=== PATIENT | male | born 1930 | race Caucasian/White ===

== ENCOUNTER → 2016-07-28 | Outpatient (CLI) | payer MEDICARE, OTHER ==
[~2016-07-28] MED LIST: ALPARAZOLAM0.5 MG PO; ARICEPT10 MG PO; RISPERDAL 0.20.25 MG PO; VITAMIN B11000 MCG/M IM; VITAMIN C PUR1000 MG PO
== END ==
LOC: LAB 09:54
DX: D64.89 Other specified anemias (principal); I44.1 Atrioventricular block, second degree; Z12.5 Encounter for screening for malignant neoplasm of prostate; E78.2 Mixed hyperlipidemia; E53.8 Deficiency of other specified B group vitamins

== ENCOUNTER → 2016-11-18 | Outpatient (CLI) | payer MEDICARE, OTHER ==
[2015-08-13 14:15] VITALS: BP 167/51
== END ==
LOC: LAB 08:55
DX: I70.213 Atherosclerosis of native arteries of extremities with intermittent claudication, bilateral legs (principal)

== ENCOUNTER → 2016-11-24 | Outpatient (CLI) | payer MEDICARE, OTHER ==
[2015-08-13 14:15] VITALS: BP 167/51
== END ==
LOC: LAB 07:59
DX: I70.213 Atherosclerosis of native arteries of extremities with intermittent claudication, bilateral legs (principal)

== ENCOUNTER → 2016-11-30 | Outpatient (CLI) | payer MEDICARE, OTHER ==
[2015-08-13 14:15] VITALS: BP 167/51
== END ==
LOC: LAB 08:06
DX: I70.213 Atherosclerosis of native arteries of extremities with intermittent claudication, bilateral legs (principal)

== ENCOUNTER → 2017-06-25 | Outpatient (CLI) | payer MEDICARE, OTHER ==
[2015-08-13 14:15] VITALS: BP 167/51
[2017-06-25 17:26] LABS: URINE APPEARANCE CLEAR; URINE BILIRUBIN NEGATIVE (NEGATIVE); URINE BLOOD NEGATIVE (NEGATIVE); URINE COLOR YELLOW; URINE GLUCOSE NEGATIVE (NEGATIVE); URINE KETONE NEGATIVE (NEGATIVE); URINE LEUKOCYTE ESTERASE NEGATIVE (NEGATIVE); URINE NITRATE NEGATIVE (NEGATIVE); URINE PROTEIN(semi-quant) NEGATIVE (NEGATIVE); URINE UROBILINOGEN NORMAL (NORMAL)
[2017-06-25 17:37] LABS: ALBUMIN 4.1 g/dL (3.5-5.0); BUN/CREATININE RATIO 19.9 (6.0-26.0); CALCIUM 9.4 mg/dL (8.4-10.2); POTASSIUM 4.6 mmol/L (3.6-5.0); TOTAL BILIRUBIN 0.5 mg/dL (0.2-1.3); TOTAL PROTEIN 7.2 g/dL (6.3-8.2)
[2017-06-25 18:09] LABS: HEMATOCRIT 39.3 % (42.0-52.0); MEAN CELL VOLUME 92 fl (78-100); MEAN CORPUSCULAR HEMOGLOBIN 30 pg (27-31); MEAN CORPUSCULAR HGB CONC 33 g/dL (33-37); MEAN PLATELET VOLUME 10.4 fl (7.4-10.4); PLATELET COUNT 200 K/mm3 (130-400); RED BLOOD COUNT 4.28 M/mm3 (4.20-5.60); RED CELL DISTRIBUTION WIDTH 12.3 % (11.5-14.5); WHITE BLOOD COUNT 5.3 K/mm3 (4.8-10.8)
[2017-06-25 19:26] LABS: ERYTHROCYTE SEDIMENTATION RATE 12 mm/hr (0-20); LYMPHOCYTE 29 % (20-51); MONOCYTE 9 % (3-10); NEUTROPHILS 60 % (42-75)
== END ==
LOC: LAB 15:16
PROVIDERS: Internal Medicine
DX: G93.40 Encephalopathy, unspecified (principal); E78.2 Mixed hyperlipidemia; D64.9 Anemia, unspecified; R41.3 Other amnesia; E53.8 Deficiency of other specified B group vitamins; R73.09 Other abnormal glucose; Z12.5 Encounter for screening for malignant neoplasm of prostate; F03.90 Unspecified dementia, unspecified severity, without behavioral disturbance, psychotic disturbance, mood disturbance, and anxiety; Z12.11 Encounter for screening for malignant neoplasm of colon

== ENCOUNTER → 2018-08-08 | Outpatient (CLI) | payer MEDICARE, OTHER ==
[2015-08-13 14:15] VITALS: BP 167/51
[2018-08-08 15:49] LABS: EOS # 0.2 (0.04-0.40); EOS % 3.3 % (0.0-4.0); HEMATOCRIT 42.4 % (42.0-52.0); HEMOGLOBIN 13.6 g/dL (13.5-18.0); LYMPH# 1.4 (1.50-4.00); MEAN CELL VOLUME 91 fl (78-100); MEAN CORPUSCULAR HEMOGLOBIN 29 pg (27-31); MEAN CORPUSCULAR HGB CONC 32 g/dL (33-37); MONO # 0.6 (0.20-0.80); PLATELET COUNT 188 K/mm3 (130-400); RED BLOOD COUNT 4.64 M/mm3 (4.20-5.60); RED CELL DISTRIBUTION WIDTH 12.8 % (11.5-14.5); WHITE BLOOD COUNT 5.2 K/mm3 (4.8-10.8)
[2018-08-08 15:51] LABS: ALBUMIN 4.4 g/dL (3.5-5.0); CALCIUM 9.5 mg/dL (8.4-10.2); POTASSIUM 4.1 mmol/L (3.6-5.0); TOTAL BILIRUBIN 0.4 mg/dL (0.2-1.3); TOTAL PROTEIN 7.6 g/dL (6.3-8.2)
[2018-08-08 17:04] LABS: URINE APPEARANCE CLEAR; URINE BILIRUBIN NEGATIVE (NEGATIVE); URINE BLOOD TRACE (NEGATIVE); URINE COLOR YELLOW; URINE GLUCOSE NEGATIVE (NEGATIVE); URINE KETONE NEGATIVE (NEGATIVE); URINE NITRATE NEGATIVE (NEGATIVE); URINE PROTEIN(semi-quant) TRACE mg/dL (NEGATIVE); URINE UROBILINOGEN NORMAL (NORMAL)
[2018-08-08 17:05] LABS: URINE LEUKOCYTE ESTERASE NEGATIVE (NEGATIVE)
[2018-08-08 17:06] LABS: ERYTHROCYTE SEDIMENTATION RATE 10 mm/hr (0-20)
== END ==
LOC: LAB 14:47
PROVIDERS: Internal Medicine
DX: R06.02 Shortness of breath (principal); I44.30 Unspecified atrioventricular block; F03.90 Unspecified dementia, unspecified severity, without behavioral disturbance, psychotic disturbance, mood disturbance, and anxiety; G93.40 Encephalopathy, unspecified; E03.4 Atrophy of thyroid (acquired); Z95.0 Presence of cardiac pacemaker

== ENCOUNTER → 2020-01-23 | Outpatient (CLI) | payer MEDICARE, OTHER ==
[2019-05-22 13:06] VITALS: BP 163/85
[~2020-01-23] MED LIST changes: +ALPRAZOLAM0.5 MG PO; +AMLODIPINE BESYL5 MG PO; +ASPIRIN E.C. 8181 MG; +LEXAPRO5 MG PO; +RISPERDAL 1M1 MG/TAB PO
== END ==
LOC: RAD 11:00
DX: G45.9 Transient cerebral ischemic attack, unspecified (principal)

== ENCOUNTER 2020-02-14 15:34 | Emergency (ER) | payer MEDICARE, OTHER ==
[2020-02-06 09:26] VITALS: BP 126/65
[~2020-02-14] VITALS: Ht 182.9 cm; Wt 76.3 kg
[~2020-02-14 15:34] MED LIST changes: -DAILY VALUE1 EACH PO; -DULCOLAX S10 MG/SUPP RC; -FLEET ENEM1 BOT/133 RC; -HYDROCODON-ACET15 ML PO; -NATURAL VITAM1000 MG PO; -RISPERIDONE0.25 M2 PO; -VITAMIN B122500 MC1 PO; -VITAMIN D350 MC1 PO; -XANAX0.25 M1 PO
[2020-02-15] MEDS ORDERED: DULCOLAX S10 MG/SUPP RC (16:13)
[2020-02-15] MEDS ORDERED: FLEET ENEM1 BOT/133 RC (16:13)
[2020-02-15] MEDS ORDERED: HYDROCODON-ACET15 ML PO (16:15)
[2020-02-15] MEDS ORDERED: LEXAPRO5 MG PO (16:16)
[2020-02-15] MEDS ORDERED: DAILY VALUE1 EACH PO (16:17)
[2020-02-15] MEDS ORDERED: RISPERIDONE0.25 M2 PO (16:18)
[2020-02-15] MEDS ORDERED: NATURAL VITAM1000 MG PO (16:19)
[2020-02-15] MEDS ORDERED: VITAMIN B122500 MC1 PO (16:19)
[2020-02-15] MEDS ORDERED: VITAMIN D350 MC1 PO (16:20)
[2020-02-15] MEDS ORDERED: XANAX0.25 M1 PO (16:21)
== END 2020-02-14 15:41 | disposition home or self-care (01) ==
LOC: ED 15:34
DX: Z72.9 Problem related to lifestyle, unspecified (principal)

== ENCOUNTER → 2020-02-14 | Outpatient (CLI) | payer MEDICARE, OTHER, MEDICAID ==
[2020-02-06 09:26] VITALS: BP 126/65
[~2020-02-14] MED LIST changes: -ASPIRIN E.C. 8181 MG; +DAILY VALUE1 EACH PO; +DONEPEZIL HCL10 MG PO; +DULCOLAX S10 MG/SUPP RC; +ELIDEL30 GM TP; +FLEET ENEM1 BOT/133 RC; +GOOD NEIGH1200 MG/15 PO; +HYDROCODON-ACET15 ML PO; +NATURAL VITAM1000 MG PO; +RISPERIDONE0.25 M2 PO; +SELSUN BLUE207 ML TP; +TOPCARE ASPIRI325 MG PO; +TYLENOL 325MG325 MG PO; +VITAMIN B122500 MC1 PO; +VITAMIN D350 MC1 PO; +XANAX0.25 M1 PO
== END ==
LOC: LAB 15:46
DX: N18.2 Chronic kidney disease, stage 2 (mild) (principal)

== ENCOUNTER → 2020-02-15 | Outpatient (CLI) | payer MEDICARE, OTHER, MEDICAID ==
[2020-02-15] VITALS (14 sets, daily range): BP systolic 124–146; BP diastolic 60–95
[~2020-02-15] VITALS: Ht 182.9 cm; Wt 79.1 kg
[~2020-02-15] MED LIST changes: +DAILY VALUE1 EACH PO; +DULCOLAX S10 MG/SUPP RC; +FLEET ENEM1 BOT/133 RC; +HYDROCODON-ACET15 ML PO; +NATURAL VITAM1000 MG PO; +RISPERIDONE0.25 M2 PO; +VITAMIN B122500 MC1 PO; +VITAMIN D350 MC1 PO; +XANAX0.25 M1 PO
--- NOTE | 2020-02-15 15:15 | NUR ---
BLOOD TRANSFUSION EDUCATION PROVIDED TO AND PATIENT. SIGNS CONSENT. PATIENT RECENTLY HAD A RT HIP REPLACEMENT AND LIVES AT [facility]. 2 STAFF ASSIST TO TRANSFER FROM W/C TO BED. PATIENT DROWSY. RESPONSIVE TO QUESTIONS AND FOLLOWS INSTRUCTION.
--- NOTE | 2020-02-15 16:28 | NUR ---
BLOOD TRANSFUSION STARTED AT 1555. AT THIS TIME, PATIENT DENIES ITCHING, PAIN, AND SHORTNESS OF BREATH. CONTINUES TO REST INTERMITTENTLY IN BED. SITTING IN CHAIR NEXT TO BED WITH TV ON.
--- NOTE | 2020-02-15 17:09 | NUR ---
MEAL TRAY DELIVERED TO PATIENT. WILL ASSIST WITH FEEDING.
--- NOTE | 2020-02-15 18:24 | NUR ---
INCONTINENT CARE PROVIDED.
--- NOTE | 2020-02-15 18:57 | NUR ---
REPORT PROVIDED TO ROSAURA NICOLE.
--- NOTE | 2020-02-15 19:04 | NUR ---
Shift change assessment complete. RR regular, unlabored, clear. HR regular. Lt leg has some pitting edema. According to it has been looking like that since the hip surgery. Pt is resting. Blood infusing through a 20 guage in Rt forearm. Site is clean dry and intact without phlebitis or infiltrate.
--- NOTE | 2020-02-15 20:16 | NUR ---
2013 Total two person transfer from bed to wheel chair. Alert to self and . at bed side. Tolerated transfer without difficulty. Foot protectors applied to pt's feet. 2019 Cat STRONG from [facility] here to take pt home.
== END ==
LOC: AMSURD 14:56
DX: D64.9 Anemia, unspecified (principal)
CPT/HCPCS: J7050; P9016

== ENCOUNTER 2020-05-04 16:12 | Emergency (ER) | payer MEDICARE, OTHER, MEDICAID ==
[~2020-05-04] VITALS: Wt 79.1 kg
[~2020-05-04 16:12] MED LIST changes: -NATURAL VITAM1000 MG PO
[2020-05-04 17:50] LABS: EOS # 0.2 (0.04-0.40); EOS % 1.7 % (0.0-4.0); HEMATOCRIT 39.3 % (42.0-52.0); HEMOGLOBIN 12.4 g/dL (13.5-18.0); LYMPH# 2.2 (1.50-4.00); MEAN CELL VOLUME 92 fl (78-100); MEAN CORPUSCULAR HEMOGLOBIN 29 pg (27-31); MEAN CORPUSCULAR HGB CONC 32 g/dL (33-37); MEAN PLATELET VOLUME 9.7 fl (7.4-10.4); MONO # 0.5 (0.20-0.80); PLATELET COUNT 246 K/mm3 (130-400); RED BLOOD COUNT 4.29 M/mm3 (4.20-5.60); RED CELL DISTRIBUTION WIDTH 14.8 % (11.5-14.5); WHITE BLOOD COUNT 12.6 K/mm3 (4.8-10.8)
[2020-05-04 17:51] LABS: NEU # 9.7 (1.40-6.50)
[2020-05-04 17:55] LABS: ALBUMIN 3.5 g/dL (3.4-4.8); POTASSIUM 3.9 mmol/L (3.5-5.1); SODIUM 142 mmol/L (136-145)
[2020-05-04 17:56] LABS: CALCIUM 8.6 mg/dL (8.3-10.5)
[2020-05-04 17:57] LABS: URINE APPEARANCE CLEAR; URINE BILIRUBIN NEGATIVE (NEGATIVE); URINE BLOOD TRACE (NEGATIVE); URINE COLOR YELLOW; URINE GLUCOSE NEGATIVE (NEGATIVE); URINE KETONE NEGATIVE (NEGATIVE); URINE LEUKOCYTE ESTERASE NEGATIVE (NEGATIVE); URINE MUCUS PRESENT (NOT PRESENT); URINE NITRATE NEGATIVE (NEGATIVE); URINE PROTEIN(semi-quant) TRACE mg/dL (NEGATIVE); URINE UROBILINOGEN NORMAL (NORMAL)
[2020-05-04 17:57] LABS: GLUCOSE 133 mg/dL (75-110); TOTAL PROTEIN 6.8 g/dL (6.2-8.1)
[2020-05-04 17:58] LABS: CARBON DIOXIDE 18 mmol/L (23-31)
[2020-05-04 17:59] LABS: TOTAL BILIRUBIN 0.3 mg/dL (0.2-1.2)
[2020-05-04 18:02] LABS: AST-SGOT 26 U/L (5-34)
[2020-05-04 18:04] LABS: ALT/SGPT 25 U/L (0-55)
[2020-05-04 18:09] LABS: TROPONIN-I < 0.03 ng/mL (<0.030)
[2020-05-04 18:44] VITALS: BP 116/58
[2020-05-04] MEDS ORDERED: ARICEPT10 M1 PO (19:57)
[2020-05-04] MEDS ORDERED: ELIDEL30 GM TP (19:58)
[2020-05-04] MEDS ORDERED: TYLENOL 325MG325 MG PO (20:00)
[2020-05-04] MEDS ORDERED: VITAMIN D350 MC1 PO (20:02)
[2020-05-05] MEDS ORDERED: VITAMIN B122500 MC1 PO (02:03)
== END 2020-05-04 21:02 | disposition other institution (70) ==
LOC: ED 16:12
PROVIDERS: Family Medicine
DX: T17.900A Unspecified foreign body in respiratory tract, part unspecified causing asphyxiation, initial encounter (principal); R06.00 Dyspnea, unspecified; F03.90 Unspecified dementia, unspecified severity, without behavioral disturbance, psychotic disturbance, mood disturbance, and anxiety; R13.10 Dysphagia, unspecified; R11.10 Vomiting, unspecified; Z20.828 Contact with and (suspected) exposure to other viral communicable diseases; Z23 Encounter for immunization; Z95.0 Presence of cardiac pacemaker; Z79.82 Long term (current) use of aspirin
CPT/HCPCS: J1940; J2270

== ENCOUNTER 2020-05-04 20:22 | Inpatient (IN) | payer MEDICARE, OTHER, MEDICAID ==
[~2020-05-04] VITALS: Ht 177.8 cm; Wt 79.3 kg
[~2020-05-04 20:22] MED LIST changes: +ARICEPT10 M1 PO
[2020-05-05] MEDS ORDERED: VITAMIN B122500 MC1 PO (02:03)
[2020-05-05 02:21] VITALS: BP 136/75
[2020-05-05 05:49] VITALS: BP 111/59
[2020-05-05 09:22] LABS: HEMOGLOBIN 11.3 g/dL (13.5-18.0); MEAN CELL VOLUME 92 fl (78-100); MEAN CORPUSCULAR HEMOGLOBIN 30 pg (27-31); MEAN CORPUSCULAR HGB CONC 32 g/dL (33-37); MEAN PLATELET VOLUME 9.7 fl (7.4-10.4); PLATELET COUNT 201 K/mm3 (130-400); RED BLOOD COUNT 3.79 M/mm3 (4.20-5.60); RED CELL DISTRIBUTION WIDTH 14.7 % (11.5-14.5); WHITE BLOOD COUNT 13.6 K/mm3 (4.8-10.8)
[2020-05-05 09:35] LABS: POTASSIUM 4.2 mmol/L (3.5-5.1)
[2020-05-05 09:36] LABS: CALCIUM 8.8 mg/dL (8.3-10.5)
[2020-05-05 09:53] LABS: BAND 31 % (0-10); LYMPHOCYTE 9 % (20-51); METAMYELOCYTE 3 % (0-0); MONOCYTE 2 % (3-10); NEUTROPHILS 55 % (42-75); NUCLEATED RED BLOOD CELL 1 (0-6)
[2020-05-05 10:28] VITALS: BP 106/48
[2020-05-05 15:00] VITALS: BP 105/52
[2020-05-05 18:14] VITALS: BP 112/56
[2020-05-05 22:10] VITALS: BP 84/46
[2020-05-06 02:26] VITALS: BP 109/48
[2020-05-06 06:25] VITALS: BP 124/61
[2020-05-06 09:32] VITALS: BP 110/66
[2020-05-06 13:40] VITALS: BP 109/76
[2020-05-06 17:19] VITALS: BP 120/57
[2020-05-06 21:28] VITALS: BP 154/68
[2020-05-07 02:15] VITALS: BP 130/73
[2020-05-07 06:00] VITALS: BP 145/69
[2020-05-07 06:01] LABS: HEMATOCRIT 30.1 % (42.0-52.0); HEMOGLOBIN 9.6 g/dL (13.5-18.0); MEAN CELL VOLUME 91 fl (78-100); MEAN CORPUSCULAR HEMOGLOBIN 29 pg (27-31); MEAN CORPUSCULAR HGB CONC 32 g/dL (33-37); MEAN PLATELET VOLUME 10.3 fl (7.4-10.4); PLATELET COUNT 194 K/mm3 (130-400); RED BLOOD COUNT 3.31 M/mm3 (4.20-5.60); WHITE BLOOD COUNT 11.9 K/mm3 (4.8-10.8)
[2020-05-07 06:15] LABS: CALCIUM 8.5 mg/dL (8.3-10.5)
[2020-05-07 06:34] LABS: BAND 4 % (0-10); LYMPHOCYTE 12 % (20-51); MONOCYTE 3 % (3-10); NEUTROPHILS 81 % (42-75)
[2020-05-07 06:35] LABS: TOXIC GRANULATION PRESENT
[2020-05-07 10:06] VITALS: BP 119/63
[2020-05-07 13:48] VITALS: BP 117/66
[2020-05-07 17:29] VITALS: BP 130/77
[2020-05-07 22:00] VITALS: BP 123/63
[2020-05-08 01:38] VITALS: BP 138/72
[2020-05-08 06:01] VITALS: BP 136/64
[2020-05-08 10:40] VITALS: BP 116/68
[2020-05-08 14:03] VITALS: BP 126/74
[2020-05-08 17:22] VITALS: BP 136/74
[2020-05-08 21:16] VITALS: BP 137/65
[2020-05-09 02:14] VITALS: BP 153/73
[2020-05-09 05:33] VITALS: BP 167/77
[2020-05-09 06:16] LABS: HEMATOCRIT 32.6 % (42.0-52.0); HEMOGLOBIN 10.4 g/dL (13.5-18.0); MEAN CELL VOLUME 92 fl (78-100); MEAN CORPUSCULAR HEMOGLOBIN 29 pg (27-31); MEAN CORPUSCULAR HGB CONC 32 g/dL (33-37); MEAN PLATELET VOLUME 9.8 fl (7.4-10.4); PLATELET COUNT 223 K/mm3 (130-400); RED BLOOD COUNT 3.55 M/mm3 (4.20-5.60); RED CELL DISTRIBUTION WIDTH 14.9 % (11.5-14.5); WHITE BLOOD COUNT 10.3 K/mm3 (4.8-10.8)
[2020-05-09 06:31] LABS: CALCIUM 8.2 mg/dL (8.3-10.5)
[2020-05-09 06:39] LABS: BAND 1 % (0-10); LYMPHOCYTE 10 % (20-51); MONOCYTE 5 % (3-10); NEUTROPHILS 84 % (42-75); TARGET CELLS 1+
[2020-05-09 09:39] VITALS: BP 125/68
[2020-05-09 13:44] VITALS: BP 137/74
[2020-05-09 17:06] VITALS: BP 161/72
[2020-05-09 21:33] VITALS: BP 161/75
[2020-05-10 02:00] VITALS: BP 156/79
[2020-05-10 05:59] VITALS: BP 155/70
[2020-05-10 09:04] LABS: EOS % 0.1 % (0.0-4.0); HEMATOCRIT 35.5 % (42.0-52.0); HEMOGLOBIN 11.3 g/dL (13.5-18.0); LYMPH# 1.6 (1.50-4.00); MEAN CELL VOLUME 91 fl (78-100); MEAN CORPUSCULAR HEMOGLOBIN 29 pg (27-31); MEAN CORPUSCULAR HGB CONC 32 g/dL (33-37); MEAN PLATELET VOLUME 9.9 fl (7.4-10.4); NEU # 8.8 (1.40-6.50); PLATELET COUNT 254 K/mm3 (130-400); RED BLOOD COUNT 3.91 M/mm3 (4.20-5.60); RED CELL DISTRIBUTION WIDTH 14.6 % (11.5-14.5); WHITE BLOOD COUNT 12.1 K/mm3 (4.8-10.8)
[2020-05-10 09:08] LABS: POTASSIUM 4.4 mmol/L (3.5-5.1)
[2020-05-10 09:09] LABS: CALCIUM 8.2 mg/dL (8.3-10.5)
[2020-05-10 09:54] VITALS: BP 134/71
[2020-05-10 14:03] VITALS: BP 116/56
[2020-05-10 15:18] LABS: URINE APPEARANCE CLEAR; URINE BILIRUBIN NEGATIVE (NEGATIVE); URINE BLOOD TRACE (NEGATIVE); URINE COLOR YELLOW; URINE GLUCOSE NEGATIVE (NEGATIVE); URINE KETONE NEGATIVE (NEGATIVE); URINE LEUKOCYTE ESTERASE NEGATIVE (NEGATIVE); URINE MUCUS PRESENT (NOT PRESENT); URINE NITRATE NEGATIVE (NEGATIVE); URINE PROTEIN(semi-quant) 1+ mg/dL (NEGATIVE); URINE UROBILINOGEN NORMAL (NORMAL)
[2020-05-10 18:46] VITALS: BP 130/78
[2020-05-10 22:20] VITALS: BP 121/74
[2020-05-11 02:00] VITALS: BP 158/79
[2020-05-11 05:52] VITALS: BP 143/85
[2020-05-11 10:00] VITALS: BP 102/54
[2020-05-11 14:03] VITALS: BP 100/46
[2020-05-11 18:40] VITALS: BP 120/64
[2020-05-11 21:38] VITALS: BP 121/56
[2020-05-12 01:14] VITALS: BP 161/84
[2020-05-12 05:55] VITALS: BP 130/84
[2020-05-12 10:12] VITALS: BP 119/68
[2020-05-12 14:20] VITALS: BP 113/69
[2020-05-12 18:00] VITALS: BP 108/71
[2020-05-12 21:38] VITALS: BP 132/70
[2020-05-13 01:35] VITALS: BP 137/79
[2020-05-13 06:02] VITALS: BP 146/68
[2020-05-13 07:26] LABS: EOS # 0.2 (0.04-0.40); EOS % 2.8 % (0.0-4.0); HEMATOCRIT 35.1 % (42.0-52.0); LYMPH# 1.5 (1.50-4.00); MEAN CELL VOLUME 92 fl (78-100); MEAN CORPUSCULAR HEMOGLOBIN 29 pg (27-31); MEAN CORPUSCULAR HGB CONC 31 g/dL (33-37); MEAN PLATELET VOLUME 9.8 fl (7.4-10.4); MONO # 0.8 (0.20-0.80); NEU # 4.9 (1.40-6.50); PLATELET COUNT 239 K/mm3 (130-400); RED BLOOD COUNT 3.82 M/mm3 (4.20-5.60); RED CELL DISTRIBUTION WIDTH 15.2 % (11.5-14.5)
[2020-05-13 07:34] LABS: POTASSIUM 3.8 mmol/L (3.5-5.1)
[2020-05-13 10:01] VITALS: BP 101/65
[2020-05-13] MEDS ORDERED: IPRATROPIUM BROM3 M1 IH (12:12)
[2020-05-13] MEDS ORDERED: PREDNISONE20 MG PO (12:13)
[2020-05-13] MEDS ORDERED: AUGMENTIN 875-1 EAC1 PO (12:14)
[2020-05-13 13:38] VITALS: BP 101/65; BP 112/67
== END 2020-05-13 15:18 | DRG 178 ==
LOC: MED/SURG 20:22
PROVIDERS: Internal Medicine; Nurse Practitioner; Nurse Practitioner Family; Nurse Practitioner Primary Care; ADMIT Family Medicine
DX: J69.0 Pneumonitis due to inhalation of food and vomit (principal); N17.9 Acute kidney failure, unspecified; L89.619 Pressure ulcer of right heel, unspecified stage; R13.10 Dysphagia, unspecified; R09.02 Hypoxemia; N18.9 Chronic kidney disease, unspecified; L89.622 Pressure ulcer of left heel, stage 2; L89.612 Pressure ulcer of right heel, stage 2; K21.9 Gastro-esophageal reflux disease without esophagitis; G20 Parkinson's disease; K59.09 Other constipation; F03.90 Unspecified dementia, unspecified severity, without behavioral disturbance, psychotic disturbance, mood disturbance, and anxiety; R50.9 Fever, unspecified; Z79.1 Long term (current) use of non-steroidal anti-inflammatories (NSAID); Z79.891 Long term (current) use of opiate analgesic; Z95.0 Presence of cardiac pacemaker
CPT/HCPCS: J0295; J1650; J1940; J2185; J2920; J3370; J3490; J7030; J7050; J7512

== ENCOUNTER → 2020-06-07 | Outpatient (CLI) | payer MEDICARE, OTHER, MEDICAID ==
[2020-05-13 13:38] VITALS: BP 101/65
[~2020-06-07] MED LIST changes: +AUGMENTIN 875-1 EAC1 PO; +IPRATROPIUM BROM3 M1 IH; +PREDNISONE20 MG PO
[2020-06-07 11:25] LABS: HEMATOCRIT 39.3 % (42.0-52.0); HEMOGLOBIN 12.3 g/dL (13.5-18.0); MEAN CELL VOLUME 94 fl (78-100); MEAN CORPUSCULAR HEMOGLOBIN 29 pg (27-31); MEAN CORPUSCULAR HGB CONC 31 g/dL (33-37); MEAN PLATELET VOLUME 9.8 fl (7.4-10.4); PLATELET COUNT 285 K/mm3 (130-400); RED BLOOD COUNT 4.19 M/mm3 (4.20-5.60); RED CELL DISTRIBUTION WIDTH 13.3 % (11.5-14.5); WHITE BLOOD COUNT 6.2 K/mm3 (4.8-10.8)
[2020-06-07 11:27] LABS: ALBUMIN 3.6 g/dL (3.4-4.8); POTASSIUM 4.1 mmol/L (3.5-5.1)
[2020-06-07 11:28] LABS: CALCIUM 8.9 mg/dL (8.3-10.5)
[2020-06-07 11:29] LABS: TOTAL PROTEIN 6.9 g/dL (6.2-8.1)
[2020-06-07 11:31] LABS: TOTAL BILIRUBIN 0.2 mg/dL (0.2-1.2)
[2020-06-07 12:10] LABS: LYMPHOCYTE 30 % (20-51); MONOCYTE 19 % (3-10); NEUTROPHILS 48 % (42-75)
== END ==
LOC: LAB 10:40
PROVIDERS: Internal Medicine
DX: J69.0 Pneumonitis due to inhalation of food and vomit (principal)

== ENCOUNTER → 2020-07-17 | Outpatient (CLI) | payer MEDICARE, OTHER, MEDICAID ==
[2020-05-13 13:38] VITALS: BP 101/65
[2020-07-17 07:33] LABS: HEMATOCRIT 36.4 % (42.0-52.0); HEMOGLOBIN 11.5 g/dL (13.5-18.0); MEAN CELL VOLUME 92 fl (78-100); MEAN CORPUSCULAR HEMOGLOBIN 29 pg (27-31); MEAN CORPUSCULAR HGB CONC 32 g/dL (33-37); MEAN PLATELET VOLUME 10.2 fl (7.4-10.4); PLATELET COUNT 174 K/mm3 (130-400); RED BLOOD COUNT 3.95 M/mm3 (4.20-5.60); RED CELL DISTRIBUTION WIDTH 12.8 % (11.5-14.5); WHITE BLOOD COUNT 6.8 K/mm3 (4.8-10.8)
[2020-07-17 07:48] LABS: ALBUMIN 3.4 g/dL (3.4-4.8); POTASSIUM 3.8 mmol/L (3.5-5.1)
[2020-07-17 07:49] LABS: CALCIUM 8.5 mg/dL (8.3-10.5)
[2020-07-17 07:52] LABS: TOTAL BILIRUBIN 0.3 mg/dL (0.2-1.2)
[2020-07-17 07:59] LABS: LYMPHOCYTE 32 % (20-51); MONOCYTE 14 % (3-10); NEUTROPHILS 44 % (42-75)
== END ==
LOC: LAB 06:40
PROVIDERS: Internal Medicine
DX: D64.9 Anemia, unspecified (principal); Z01.89 Encounter for other specified special examinations

== ENCOUNTER → 2021-10-27 | Day surgery (SDC) | payer MEDICARE, MEDICAID | END | disposition home or self-care (01) | LOC: MSO 09-15 11:47 | DX: C44.329 Squamous cell carcinoma of skin of other parts of face (principal) ==